=== PATIENT | female | born 1985 | race Caucasian/White ===

== ENCOUNTER 2019-06-11 22:17 | Observation (INO) | payer BC, OTHER ==
[2019-06-11] MEDS ORDERED: Promethazine HCl 25 MG/ML VIAL IM PRN (22:48)
[2019-06-11] MEDS ORDERED: hydrALAZINE 20 MG/ML VIAL SLOW IVP PRN (22:48)
[2019-06-11] MEDS ORDERED: Ondansetron PF 4 MG/2 ML Vial IVP PRN (22:48)
[2019-06-11] MEDS ORDERED: Acetaminophen 500 MG TAB PO PRN (22:50)
[2019-06-11] MEDS ORDERED: Zolpidem Tartrate 5 MG TAB PO PRN (22:50)
[2019-06-11 23:11] VITALS: BMI 31.6
[2019-06-11] MEDS ORDERED: Lactated Ringer's 1,000 ML IV SCH (23:15)
[2019-06-11] MEDS ORDERED: Ondansetron ODT 8 MG TAB SL SCH (23:30)
[2019-06-11] MEDS ORDERED: Morphine 4 MG/ML VIAL SLOW IVP SCH (23:45)
[2019-06-11] MEDS: CEFAZOLIN 2 GM in Premix Bag 1 BAG IVPB SCH (23:47)
[2019-06-11 23:48] LABS: #Lymphocytes 0.6 thou/uL (1.20-3.40); #Monocytes 0.3 thou/uL (0.11-0.59); #Neutrophils 7.9 thou/uL (1.40-6.50); %Basophils 0.1 % (0.0-1.0); %Eosinophils 0.3 % (0.0-10.0); %Lymphocytes 6.5 % (21.0-51.0); %Monocytes 3.2 % (0.0-10.0); %Neutrophils 89.8 % (42.0-75.0); Hemoglobin 10.6 g/dL (12.0-16.0); Mean Corpuscular HGB CONC 32.5 g/dL (32.0-36.0); Mean Corpuscular Hemoglobin 25.1 pg (27.0-31.0); Mean Corpuscular Volume 77.1 fL (78.0-98.0); Mean Platelet Volume 7.4 fL (7.4-10.4); Platelet Count 243 thou/uL (130-400); RBC Distribution Width 14.1 % (11.5-14.5); Red Blood Cell (RBC) Count 4.21 mill/uL (4.20-5.40); White Blood Cell (WBC) Count 8.8 thou/uL (4.8-10.8)
[2019-06-12 00:08] LABS: ALT (SGPT) 10 U/L (8-55); AST (SGOT) 15 U/L (5-34); Albumin 3.5 g/dL (3.5-5.0); Alkaline Phosphatase 77 U/L (40-110); Anion Gap 16 mmol/L (10-20); BUN (Urea Nitrogen) 10 mg/dL (7.0-18.7); Bilirubin, Total 0.6 mg/dL (0.2-1.2); Calc. Creatinine Clearance 150 mL/min (70-130); Calcium 8.2 mg/dL (7.8-10.44); Carbon Dioxide 17 mmol/L (22-29); Chloride 105 mmol/L (98-107); Estimated GFR-MDRD Greater than 90; Globulin 2.9 g/dL (2.4-3.5); Glucose 85 mg/dL (70-105); Potassium 3.5 mmol/L (3.5-5.1); Protein, Total 6.4 g/dL (6.0-8.3); Sodium 134 mmol/L (136-145)
--- NOTE | 2019-06-12 00:29 | HP ---
PRIMARY OB: Dr. Krishna Griffin. CHIEF COMPLAINT: Nausea, vomiting, and tachycardia. HISTORY OF PRESENT ILLNESS: The patient is a 34-year-old, G9, P2 female with an intrauterine at 33 weeks and 6 days, presenting to Labor and Delivery with onset of intermittent tachycardia yesterday evening and nausea and vomiting that has been worse than usual after waking up today. The patient reports she has had essentially nothing to eat today as she has been unable to keep fluids and food down. She reports a temperature of nearly 101 in the emergency room at [facility] and states that when her heart races, she begins to feel anxious and feel like her baby is up in her chest. The patient denies any sick contacts with similar symptoms. Her child recently had an ear infection and had fever. A flu test at the outside facility was negative per her primary OB's report. Prior to coming, the patient received about a liter and half of IV fluids and Phenergan IM. The patient denies diarrhea or constipation. She denies any new rashes, hip problems, knee problems, or muscle weakness. Denies vaginal bleeding or leakage of fluid, urinary urgency or frequency. The patient reports that she urinated just after she arrived. The patient reports that she has been having crampy abdominal pain, this giving her concern. She feels like her contractions do not completely release and then has contractions on top of that. PAST MEDICAL HISTORY: Negative. PAST SURGICAL HISTORY: Negative. ALLERGIES: NO KNOWN DRUG ALLERGIES. MEDICATIONS: vitamins. SOCIAL HISTORY: Denies drug, alcohol, or tobacco use. OB LABORATORY DATA: Unavailable at time of dictation. REVIEW OF SYSTEMS: Per HPI. PHYSICAL EXAMINATION: VITAL SIGNS: Blood pressure 117/64, heart rate of 120, saturating 100% on room air, temperature 98.3. GENERAL: The patient appears to be anxious and in some distress. She is alert, oriented, cooperative, and pleasant to interact with. HEENT: Head is normocephalic and atraumatic. LUNGS: Clear to auscultation bilaterally. HEART: Tachycardic with a regular rhythm. ABDOMEN: Gravid, soft, nontender to palpation. Normoactive bowel sounds to auscultation. No significant hyperactive sounds. EXTREMITIES: Nontender, nonedematous. CERVICAL: Deferred at this time while they are trying to admit the patient as her having trouble with an IV. heart tracing shows a baseline in the 150s with moderate long-term variability, positive 15 x 15 accelerations. Tocometer showing irritability with contractions about every 2-3 minutes palpating mild. ASSESSMENT AND PLAN: The patient is a 34-year-old G 9, P2 female with an intrauterine at 33 weeks and 6 days who appears to be experiencing gastrointestinal bug that may or may not be associated with these episodes of tachycardia which is given her most of her concerns as are the abdominal pains. At this time, plan is to give her Zofran 8 mg under the tongue to hold it as they are having difficulty getting an IV in her. She will be starting Ancef 2 g q.8 hours per her primary OB's directions, is getting Ambien tonight to help her sleep. She will be given IV fluids for hydration once that can be established. Once we get her nausea and vomiting under control and get her hydrated well, if her contractions do not dissipate, we will start her on Procardia. For her tachycardia which may or may not be associated with infectious etiology, I have ordered an EKG as the patient is having episodes as high as 138 here with us. The patient has had one episode of vomiting about 300 mL of bilious fluid during this admission process. Once she has been fully admitted and we obtained IV access and the sublingual medication has been given time to work, we will reassess. Addendum: IV access was obtained, IV zofran provided. Pt reported feeling much better with IV hydration, antiemetics and rest. No evidence of labor presented. Dr Griffin assuming care in the morning. Job ID: [id number] [facility]
[2019-06-12 08:40] VITALS: TEMP 97.8
[2019-06-12] MEDS: CEFAZOLIN 2 GM in Premix Bag 1 BAG IVPB SCH (10:03)
[2019-06-12] MEDS: Dextrose 5 %-0.45 % NaCl 1,000 ML IV SCH ×2 (10:14→10:15)
[2019-06-12] MEDS: Lactated Ringer's 1,000 ML IV SCH ×2 (10:15→10:16)
[2019-06-12] MEDS ORDERED: hydrOXYzine Pamoate 25 mg Capsule PO SCH (12:00)
--- NOTE | 2019-06-14 17:18 | EKG ---
Test Reason : Blood Pressure : / mmHG Vent. Rate : 110 BPM Atrial Rate : 110 BPM P-R Int : 124 ms QRS Dur : 082 ms QT Int : 348 ms P-R-T Axes : 053 082 -06 degrees QTc Int : 470 ms Sinus tachycardia Possible Left atrial enlargement T wave abnormality, consider inferior ischemia Abnormal ECG No previous ECGs available Confirmed by PATRICK GUZMAN (2) on 06/14/2019 5:18:14 PM Referred By: JOAQUÍN Confirmed By:PATRICK GUZMAN
== END 2019-06-12 14:05 | disposition home health service (06) ==
LOC: L&D/OP 22:17 → L&D 06-12 07:35
PROVIDERS: ADMIT Obstetrics & Gynecology; ATTEND Obstetrics & Gynecology
DX: O47.03 False labor before 37 completed weeks of gestation, third trimester (principal); O21.0 Mild hyperemesis gravidarum; O99.613 Diseases of the digestive system complicating pregnancy, third trimester; K52.9 Noninfective gastroenteritis and colitis, unspecified; Z3A.33 33 weeks gestation of pregnancy; Z79.82 Long term (current) use of aspirin; Z79.899 Other long term (current) drug therapy
CPT/HCPCS: 80053; 85025; 93005; 93010; 96361; 96365; 96366; 96375; 96376; 99285; G0378; J0690; J2270; J2405; J2550; Q0177